=== PATIENT | female | born 2005 | race Caucasian/White ===

== ENCOUNTER 2024-09-16 18:23 | Emergency (ER) | payer MEDICAID ==
[2024-09-16 19:14] LABS: BASOPHILS ABSOLUTE AUTO 0.05 K/uL (0.00-0.10); BASOPHILS PERCENT AUTO 0.5 % (0.1-1.3); EOSINOPHILS ABSOLUTE AUTO 0.13 K/uL (0.00-0.40); EOSINOPHILS PERCENT AUTO 1.3 % (0.0-5.4); HEMATOCRIT 39.7 % (34.3-46.0); HEMOGLOBIN 13.4 g/dL (11.2-15.5); IMMATURE GRAN ABSOLUTE AUTO 0.03 K/uL (0.00-0.23); IMMATURE GRAN PERCENT AUTO 0.3 % (0.0-0.7); LYMPHOCYTES ABSOLUTE AUTO 2.91 K/uL (0.8-3.3); LYMPHOCYTES PERCENT AUTO 29.6 % (11.4-47.7); MEAN CORPUSCULAR HEMOGLOBIN 28.8 pg (31.6-35.5); MEAN CORPUSCULAR HGB CONC 33.8 g/dL (31.6-35.5); MEAN CORPUSCULAR VOLUME 85.4 fL (81.4-99.0); MONOCYTES ABSOLUTE AUTO 0.49 K/uL (0.20-0.90); NEUTROPHILS ABSOLUTE AUTO 6.21 K/uL (1.0-7.6); NEUTROPHILS PERCENT AUTO 63.3 % (40.0-78.1); PLATELET COUNT,PLT 317 K/uL (130-375); RED BLOOD CELL COUNT 4.65 M/uL (3.77-5.24); WHITE BLOOD CELL COUNT,WBC 9.8 K/uL (3.2-11.0)
[2024-09-16 19:39] LABS: A/G RATIO 1.1 (1.2-2.2); ALANINE AMINOTRANSFERASE,ALT 13 U/L (12-78); ALKALINE PHOSPHATASE 60 U/L (46-116); ANION GAP 12.8 mmol/L (5.0-14.0); ASPARTATE AMNIOTRANSFERASE,AST 12 U/L (15-37); BILIRUBIN TOTAL 0.5 mg/dL (0.2-1.0); BLOOD UREA NITROGEN,BUN 9 mg/dL (7-18); CALCIUM 9.4 mg/dL (8.5-10.1); CARBON DIOXIDE,CO2 27 mmol/L (21-32); CHLORIDE,CL 103 mmol/L (100-108); CREATININE 0.8 mg/dL (0.6-1.0); ESTIMATED GFR 107 mL/min (>60); GLUCOSE RANDOM 97 mg/dL (74-106); POTASSIUM,K 3.9 mmol/L (3.6-5.2); PROTEIN TOTAL,TP 7.8 g/dL (6.4-8.2); SODIUM,NA 143 mmol/L (140-148)
[2024-09-16 20:14] LABS: APPEARANCE,URINE SLIGHTLY CLOUDY (CLEAR); BILIRUBIN,URINE NEGATIVE (NEGATIVE); COLOR,URINE YELLOW (YELLOW); GLUCOSE,URINE NEGATIVE (NEGATIVE); KETONES,URINE NEGATIVE (NEGATIVE); LEUKOCYTE ESTERASE,URINE TRACE (NEGATIVE); NITRITE,URINE NEGATIVE (NEGATIVE); OCCULT BLOOD,URINE LARGE (NEGATIVE); PROTEIN,URINE NEGATIVE (NEGATIVE); UROBILINOGEN,URINE 0.2 EU/dL (0.2-1.0)
[2024-09-16 20:22] LABS: AMORPHOUS SEDIMENT,URINE NOT SEEN; BACTERIA,URINE FEW; EPITHELIAL CELLS,URINE FEW; MUCUS,URINE RARE; RBC,URINE 20-30 (0-5); WBC,URINE 0-5 (0-5)
== END 2024-09-16 20:35 | disposition home or self-care (01) ==
LOC: JP.ED 18:23
DX: O20.9 Hemorrhage in early pregnancy, unspecified (principal); Z3A.00 Weeks of gestation of pregnancy not specified; Z86.16 Personal history of COVID-19
CPT/HCPCS: 36415; 76817; 80053; 81001; 84702; 85025; 99283; 99284

== ENCOUNTER 2024-10-26 19:52 | Emergency (ER) | payer MEDICAID ==
[2024-10-26 20:26] LABS: APPEARANCE,URINE SLIGHTLY CLOUDY (CLEAR); BILIRUBIN,URINE NEGATIVE (NEGATIVE); COLOR,URINE YELLOW (YELLOW); GLUCOSE,URINE NEGATIVE (NEGATIVE); KETONES,URINE NEGATIVE (NEGATIVE); LEUKOCYTE ESTERASE,URINE SMALL (NEGATIVE); NITRITE,URINE NEGATIVE (NEGATIVE); OCCULT BLOOD,URINE MODERATE (NEGATIVE); PH,URINE 5.5 (5.0-8.0); PROTEIN,URINE NEGATIVE (NEGATIVE); UROBILINOGEN,URINE 0.2 EU/dL (0.2-1.0)
[2024-10-26 20:31] LABS: BASOPHILS ABSOLUTE AUTO 0.04 K/uL (0.00-0.10); BASOPHILS PERCENT AUTO 0.6 % (0.1-1.3); EOSINOPHILS ABSOLUTE AUTO 0.11 K/uL (0.00-0.40); EOSINOPHILS PERCENT AUTO 1.6 % (0.0-5.4); HEMATOCRIT 37.7 % (34.3-46.0); HEMOGLOBIN 12.8 g/dL (11.2-15.5); IMMATURE GRAN PERCENT AUTO 0.3 % (0.0-0.7); LYMPHOCYTES PERCENT AUTO 21.2 % (11.4-47.7); MEAN CORPUSCULAR HEMOGLOBIN 28.8 pg (31.6-35.5); MEAN CORPUSCULAR VOLUME 84.9 fL (81.4-99.0); MONOCYTES ABSOLUTE AUTO 0.64 K/uL (0.20-0.90); MONOCYTES PERCENT AUTO 9.1 % (3.3-12.6); NEUTROPHILS ABSOLUTE AUTO 4.75 K/uL (1.0-7.6); NEUTROPHILS PERCENT AUTO 67.2 % (40.0-78.1); PLATELET COUNT,PLT 303 K/uL (130-375); RED BLOOD CELL COUNT 4.44 M/uL (3.77-5.24); WHITE BLOOD CELL COUNT,WBC 7.1 K/uL (3.2-11.0)
[2024-10-26 20:32] LABS: IMMATURE GRAN ABSOLUTE AUTO 0.02 K/uL (0.00-0.23)
[2024-10-26 20:40] LABS: AMORPHOUS SEDIMENT,URINE NOT SEEN; BACTERIA,URINE MANY; EPITHELIAL CELLS,URINE MODERATE; MUCUS,URINE FEW
== END 2024-10-26 23:33 | disposition home or self-care (01) ==
LOC: JP.ED 19:52
DX: O20.0 Threatened abortion (principal); N39.0 Urinary tract infection, site not specified; Z79.899 Other long term (current) drug therapy; Z86.16 Personal history of COVID-19
CPT/HCPCS: 36415; 76801; 76817; 81001; 81025; 84702; 85025; 86850; 86900; 86901; 93976; 99284

== ENCOUNTER 2024-12-04 10:23 | Emergency (ER) | payer MEDICAID ==
[2024-12-04 11:09] LABS: HEMATOCRIT 36.6 % (34.3-46.0); HEMOGLOBIN 12.5 g/dL (11.2-15.5); MEAN CORPUSCULAR HGB CONC 34.2 g/dL (31.6-35.5); MEAN CORPUSCULAR VOLUME 84.9 fL (81.4-99.0); RED BLOOD CELL COUNT 4.31 M/uL (3.77-5.24); WHITE BLOOD CELL COUNT,WBC 7.7 K/uL (3.2-11.0)
[2024-12-04 11:33] LABS: BLOOD UREA NITROGEN,BUN 7 mg/dL (7-18); CALCIUM 9.1 mg/dL (8.5-10.1); CARBON DIOXIDE,CO2 24 mmol/L (21-32); CHLORIDE,CL 103 mmol/L (100-108); CREATININE 0.5 mg/dL (0.6-1.0); EST CRCL DRUG DOSING (CG) 160.15 mL/min; ESTIMATED GFR 137 mL/min (>60); GLUCOSE RANDOM 90 mg/dL (74-106); POTASSIUM,K 3.4 mmol/L (3.6-5.2); SODIUM,NA 137 mmol/L (140-148)
[2024-12-04 11:34] LABS: ANION GAP 13.4 mmol/L (5.0-14.0); TROPONIN I HIGH SENSITIVITY < 4.0 pg/mL (<=60.3)
== END 2024-12-04 12:21 | disposition home or self-care (01) ==
LOC: JP.ED 10:23
DX: O99.891 Other specified diseases and conditions complicating pregnancy (principal); R07.89 Other chest pain; Z86.16 Personal history of COVID-19; Z3A.11 11 weeks gestation of pregnancy
CPT/HCPCS: 36415; 80048; 84484; 85027; 85379; 93005; 99285

== ENCOUNTER 2024-12-28 20:54 | Emergency (ER) | payer MEDICAID ==
[2024-12-28] MEDS: Ketorolac 30 MG/ML SDV IM ONE (22:20)
== END 2024-12-28 22:51 | disposition home or self-care (01) ==
LOC: JP.ED 20:54
DX: K04.7 Periapical abscess without sinus (principal); Z79.899 Other long term (current) drug therapy
CPT/HCPCS: 96372; 99282; J1885

== ENCOUNTER 2025-04-05 10:17 | Emergency (ER) | payer MEDICAID | END 2025-04-05 11:38 | disposition home or self-care (01) | LOC: JP.ED 10:17 | DX: O99.891 Other specified diseases and conditions complicating pregnancy (principal); K08.89 Other specified disorders of teeth and supporting structures; Z3A.00 Weeks of gestation of pregnancy not specified | CPT/HCPCS: 99282; 99283 ==

== ENCOUNTER 2025-05-21 09:34 | Emergency (ER) | payer MEDICAID ==
[2025-05-21 10:43] LABS: APPEARANCE,URINE CLEAR (CLEAR); GLUCOSE,URINE NEGATIVE (NEGATIVE); OCCULT BLOOD,URINE NEGATIVE (NEGATIVE)
[2025-05-21 11:01] LABS: SQUAMOUS EPITHELIAL CELLS,UR MANY /HPF
== END 2025-05-21 10:56 | disposition home or self-care (01) ==
LOC: JP.ED 09:34
DX: O26.93 Pregnancy related conditions, unspecified, third trimester (principal); R10.30 Lower abdominal pain, unspecified; M54.50 Low back pain, unspecified; Z79.899 Other long term (current) drug therapy; Z3A.35 35 weeks gestation of pregnancy
CPT/HCPCS: 81001; 99284